=== PATIENT | female | born 1970 | race Caucasian/White ===

== ENCOUNTER 2024-05-03 20:33 | Emergency (ER) | payer BC, SELFPAY ==
--- NOTE | ~2024-05-03 | CT_ITS ---
EXAMINATION: CT brain wo con DATE: 05/03/2024 21:59 INDICATION: fall, head injury . TECHNIQUE: Computed tomography (CT) of the head was performed without intravenous contrast. The mA wa s adjusted according to patient size. Iterative reconstruction technique was employed. The dose-lengt h product was 681.00 mGy-cm. COMPARISON: None. FINDINGS: No acute intracranial hemorrhage or extra-axial fluid collection. No hydrocephalus, mass, or herniation. No acute ischemic infarct. Unremarkable dural venous sinus attenuation. No acute osseous abnormality. The aerated spaces are clear. IMPRESSION: No acute intracranial process. Reviewed, dictated and finalized at location K.
--- NOTE | ~2024-05-03 | CT_ITS ---
EXAMINATION: CT cervical spine wo con DATE: 05/03/2024 22:00 INDICATION: fall, head injury TECHNIQUE: Computed tomography (CT) of the cervical spine was performed without intravenous contrast. Automated exposure control and iterative reconstruction technique were employed. The dose-length pro duct was 392.61 mGy-cm. COMPARISON: None. FINDINGS: Vertebral Body Alignment: Intact. Craniocervical and atlantoaxial alignment: Moderate degenerative change. Alignment intact. Osseous structures/fracture: No evidence of a lytic or blastic process in the visualized spine. No e vidence of acute fracture. Cervical soft tissues: The paraspinal soft tissues planes are maintained. Biapical pleural scarring. Degenerative changes: Degenerative changes, without severe neural foraminal or central canal narrowin g. Prominent posterior disc marginal osteophyte complexes and posterior longitudinal ligament ossific ation at C5 and C6 which contribute to mild-moderate canal narrowing. IMPRESSION: No acute fracture or traumatic malalignment in the cervical spine. Reviewed, dictated and finalized at location K.
[2024-05-03 20:46] VITALS: BP 127/87; PULSE 112; RESP 16; TEMP 36.7; O2SAT 96
--- NOTE | 2024-05-03 20:53 | ED_ITS ---
HPI - Headache General Chief Complaint: Headache Stated Complaint: fell and hit head, headache & N/V since Time Seen by Provider: 05/03/24 20:53 Source: patient Mode of arrival: ambulatory Limitations: no limitations History of Present Illness HPI Narrative: This is a 53-year-old female who presents to the ED for chief complaint of head injury that occurred earlier today around 2:00 p.m.. Patient states that she accidentally slipped while trying to get out of the shower. Patient states that she hit her head on the bathroom floor. She is unsure if she passed out. Endorses nausea but no vomiting. Endorses frontal headache. Denies double vision, numbness, weakness, neck pain or spine pain. Denies any further site of injury. Related Data Allergies Allergy/AdvReac Type Severity Reaction Status Date / Time No Known Allergies Allergy Verified 05/03/24 21:35 Review of Systems Review of Systems: All systems as dictated in HPI Exam Narrative: GENERAL: Well-appearing, well-nourished, and in no acute distress. HEAD: Normocephalic, atraumatic. EYES: PERRLA and EOMI. ENT: Nares clear, no rhinorrhea or epistaxis. Mucous membranes moist. Oropharynx without tonsillar hypertrophy exudate or other lesions. NECK: Supple. No adenopathy or masses. CHEST: No respiratory distress. Clear to auscultation. No wheezes rales or rhonchi HEART: Regular rate and rhythm. No murmur heard. Normal peripheral pulses. ABDOMEN: Soft, nontender, nondistended, normal active bowel sounds. MSK: Normal range of motion. No edema. No midline spine tenderness. SKIN: Warm, dry, no rash. NEURO: Alert and oriented x4. No focal deficits. Ambulatory without assistance. PSYCH: Normal mood and affect. Course Vital Signs Vital signs: Vital Signs Temperature 98.1 F 05/03/24 20:46 Pulse Rate 112 H 05/03/24 20:46 Respiratory Rate 16 05/03/24 20:46 Blood Pressure 127/87 05/03/24 20:46 Pulse Oximetry 96 05/03/24 20:46 Oxygen Delivery Room Air 05/03/24 20:46 Temperature 98.1 F 05/03/24 20:46 Pulse Rate 83 05/03/24 22:47 Respiratory Rate 16 05/03/24 22:47 Blood Pressure 134/76 05/03/24 22:47 Pulse Oximetry 100 05/03/24 22:47 Oxygen Delivery Room Air 05/03/24 20:46 MDM - Headache MDM Narrative Medical decision making narrative: This is a 53-year-old female who presents to the ED for chief complaint of head injury after fall today. Fall was mechanical in nature. Vitals are normal. Exam is unremarkable. No neurologic deficits. CT brain and cervical spine are negative for acute findings. Presentation consistent with concussion. She was given Tylenol, Zofran, Toradol here with good relief of symptoms. Patient will be discharged in stable condition. Supportive measures discussed and return precautions given. Patient is understanding and agreeable with plan for discharge with PCP follow-up. Lab Data Labs: Lab Results 05/03/24 Range/Units 21:34 POC Urine HCG, Qual Negative (Negative) Discharge Plan Discharge Clinical Impression: Concussion Patient Disposition: Home, Self-Care Condition: Stable Instructions: Antibiotic Form Additional Instructions: Exam and imaging today are reassuring overall. This is probably consistent with a concussion which should self resolve over the next week. Tylenol and ibuprofen regularly for pain control. Zofran for nausea. If you have any new or worsening symptoms please return to the ER for further evaluation. Patient Language: Hebrew Prescriptions: New ondansetron 4 mg tablet,disintegrating 4 mg PO Q8H PRN (Reason: nausea and vomiting) Qty: 10 0RF Follow-up/Referrals: PHYSICIAN,CHEMICAL OPERATIONS SPECIALIST [Non-Staff] - Time of Disposition: 22:35
--- OUTSIDE RECORDS SUMMARY | 2024-05-03 21:08 | XMS_ITS | CONTINUITY OF CARE DOCUMENT ---
Author Name yamilex kaminski Address Unknown Organization [facility] Address [address] [place] [address] Phone [phone] Care Team Providers Care Privacy Officer Name Role Phone Jesus EMERY, Flako Unavailable SCOTTIE VIVEROS MD Unavailable INSURANCE PROVIDERS Payer name Policy type / Coverage type [place] [employer] party ID [facility] [id number]
--- OUTSIDE RECORDS SUMMARY | 2024-05-03 21:08 | XMS_ITS | Clinical Summary ---
Author Organization [facility] Address [address] [place] [address] Care Team Providers Care Command And Control Name Role Phone Zeeshan Collins ECTOR-GEODESIST Primary Care Provider [phone] Source Comments [facility],non-owned Affiliates and Associated Physician Practices is amultiple site organization consisting of ambulatory clinics and hospital sitesin [place], [place], [place]. This disclosure is being madepursuant to the Care Everywhere program and may not contain all information available regarding this patient. Last updated 17.[facility] Allergies No known active allergies Medications * Be aware that medications may not be up to date on this document. Alwaysverify current medications with the patient. Medication Sig Dispensed Refills Start Date End Date Status busPIRone (Buspar) 10 MG tablet Take 1 (one) tablet by mouth 2 times daily as needed 10/23/2023 Active diphenoxylate-atropi ne (Lomotil) 2.5-0.025 MG tablet TAKE 1 TABLET BY MOUTH EVERY 8 HOURS NEEDED FOR DIARRHEA 02/17/2023 Active FLUoxetine (PROzac) 40 MG capsule Take 1 (one) capsule by mouth once daily 10/23/2023 Active ondansetron (Zofran) 8 MG tablet Take 1 (one) tablet by mouth 2 times daily 07/01/2023 Active SUMAtriptan (Imitrex) 50 MG tablet TAKE 1 TABLET BY MOUTH AT ONSET OF SYMPTOMS. MAY REPEAT DOSE IN 2 HOURS. DO NOT EXCEED 200 MG IN 24 HOURS 09/25/2023 Active valACYclovir (Valtrex) 500 MG tablet Take 1 (one) tablet by mouth once daily 10/23/2023 Active Multiple Vitamins-Minerals (Eye Health) CAPS Active magnesium oxide (Mag-Ox) 400 MG tablet Take 1 (one) tablet by mouth once daily Active Calcium Magnesium Zinc 333-133-5 MG TABS Active Levocetirizine Dihydrochloride (XYZAL PO) Active Collagen-Vitamin C-Biotin (COLLAGEN 1500/C PO) Active Misc Natural Products (OSTEO BI-FLEX ADV TRIPLE ST PO) Active Ashwagandha CAPS capsule Take 1 capsule by mouth Active multivitamins plus minerals chew tablet Take 1 (one) tablet by mouth daily with food Active cyanocobalamin (Vitamin B-12) 100 MCG tablet Take 1 (one) tablet by mouth once daily Active Nutritional Supplements (ESTRO SUPPORT ES PO) Active acetaminophen (Tylenol) 325 MG tablet Take 1 (one) tablet by mouth every 4 hours as needed for Fever or Pain Maximum allowable Acetaminophen amount = 4 Grams (4000 mg) / 24 hours. Active silver sulfADIAZINE (Silvadene) 1 % cream Apply to affected area 2 times daily Active naproxen (Naprosyn) 500 MG tabletIndications:Ea rly sudpected inflammatory arthritis. Take 1 (one) tablet by mouth 2 times daily Reasons: Early sudpected inflammatory arthritis. 180 tablet 1 12/31/2023 Active Active Problems Problem Noted Date Diagnosed Date Periarticular subcutaneous nodules 03/02/2024 Assessment & Plan (03/02/2024 5:06 PM MAJOR ASSEMBLER): 2 discrete nodules surrounding left #2 PIP articulation of ? etiology. Doubt rheumatoid nodules (RF negative). Painful when strikes finger. Recommend surgical excision for pathology review) Inflammatory polyarthritis 12/16/2023 Overview (12/16/2023): Suspect nodular rheumatoid arthritis (mother had RA). Begin staging (see lab and xray orders). Begin naproxen 500mg twice daily. Return to discuss detention Rx. Encounters Date Type Department Care Team Description 03/09/2024 1:00 PM MAJOR ASSEMBLER Office Visit [facility] - Orthopedics [address] [place] [address], [place] [address] Sriram Sarmiento MD Periarticular subcutaneous nodules (Primary Dx); Finger mass, left 03/05/2024 Travel 03/02/2024 11:00 AM MAJOR ASSEMBLER Office Visit [facility] - Rheumatology [address] [place] [address], [address] [place] [address] Devon Jose DO Periarticular subcutaneous nodules (Primary Dx); Inflammatory polyarthritis; Encounter for monitoring NSAID therapy from Last 3 Months Social History Tobacco Use Types Packs/Day Years Used Date Smoking Tobacco: Former Cigarettes S tarted: 2003 Smokeless Tobacco: Never PHQ-2 Answer Date Recorded Patient Health Questionnaire-2 Score 1 03/02/2024 Sex and Gender Information Value Date Recorded Sex Assigned at Not on file Gender Identity Not on file Sexual Orientation Not on file Last Filed Vital Signs Vital Sign Reading Time Taken Comments Blood Pressure 110/70 03/02/2024 10:47 AM MAJOR ASSEMBLER Pulse 79 03/02/2024 10:47 AM MAJOR ASSEMBLER Temperature 36.1 C (97 F) 03/02/2024 10:47 AM MAJOR ASSEMBLER Respiratory Rate 16 03/02/2024 10:47 AM MAJOR ASSEMBLER Oxygen Saturation 98% 03/02/2024 10:47 AM MAJOR ASSEMBLER Inhaled Oxygen Concentration - - Weight 78 kg (172 lb) 03/02/2024 10:47 AM MAJOR ASSEMBLER Height 165.1 cm (5' 5 ) 12/31/2023 11:54 AM MAJOR ASSEMBLER Body Mass Index 28.62 12/31/2023 11:54 AM MAJOR ASSEMBLER Plan of Treatment Upcoming Encounters Date Type Department Care Team (Latest Contact Info) Description 05/12/2024 7:15 AM CDT Hospital Encounter [facility] [address] [place] [address] Sriram Sarmiento MD [address] [place] [phone] Surgery General 05/12/2024 7:15 AM CDT - 05/12/2024 8:18 AM CDT Surgery [facility] [address] [place] [address] Sriram Sarmiento MD [address] [place] [phone] INDEX FINGER TUMOR EXCISIONAL BIOPSY 06/01/2024 10:40 AM CDT Office Visit [facility] - Rheumatology [address], [address] [place] [phone] Devon Jose DO [address] [place] [phone] 06/01/2024 1:00 PM CDT Office Visit [facility] - Rheumatology [address] [place] [address] Ramírez Daigle MD [address] [place] [address] 06/29/2024 10:00 AM CDT Office Visit [facility] - Endocrinology [address], [address] [place] [phone] Benito Cuevas MD [address] [place] [address] Scheduled Procedures Name Priority Associated Diagnoses Date/Ti me EXCISION MASS OR TUMOR ARM/SHOULDER Diagnosis unknown 05/12/2024 7:15 AM CDT Health Maintenance Due Date Last Done Comments COLON MONITORING 1970 COLONOSCOPY - COLON CA SCREENING 1970 CT COLONOGRAPHY - COLON CA SCREENING 1970 FIT - COLON CA SCREENING 1970 FLEX SIG - COLON CA SCREENING 1970 LIPID TESTING 1970 MAMMOGRAM 1970 PAP SMEAR 1970 HIV SCREENING 1985 DTAP/TDAP/TD VACCINES (1 - Tdap) 1989 HEPATITIS B VACCINE (1 of 3 - 19+ 3-dose series) 1989 PNEUMOCOCCAL VACCINE 50+ (1 of 1 - PCV) 2020 ZOSTER VACCINE (1 of 2) 2020 COVID-19 VACCINE ( - 2023-2 5 season) 2023 INFLUENZA VACCINE (#1) 2023 3, 01/23/2022 SCREENING FOR DIABETES 12/16/2023 COLOGUARD (AGES 45-75) - COL ON CA SCREENING 03/31/2025 03/31/2022 Colorectal Cancer Screening 03/31/2025 HEPATITIS C SCREENING Completed 12/29/2023 DEPRESSION SCREENING Completed 03/02/2024 HIB VACCINE Aged Out No longer eligi ble based on patient's age to complete this topic HPV VACCINE Aged Out No longer eligi ble based on patient's age to complete this topic MENINGOCOCCAL (Group B) VACCINE SHARED DECISION-MAKING Aged Out No longer eligible based on patient's age to complete this topic MENINGOCOCCAL GROUPS A/C/Y/W VACCINE Aged Out No longer eligible b ased on patient's age to complete this topic Procedures Procedure Name Priority Date/Time Associated Diagnosis Comments HEPATITIS C AB W/RFLX TO HCV RNA QN PCR 12/29/2023 1:29 PM MAJOR ASSEMBLER from Last 3 Months or Most Recently Relevant to Health Maintenance Results * HEPATITIS C AB W/RFLX TO HCV RNA QN PCR (12/29/2023 1:29 PM MAJOR ASSEMBLER) Hepatitis C Antibody NON-REACTI VE NON-REACT [facility] Comment: HCV antibody was non-reactive. There is no laboratory evidence of HCV infection. In most cases, no further action is required. However, if recent HCV exposure is suspected, a test for HCV RNA (test code 68028) is suggested. For additional information please refer to http://education.[employer].Make My plate/faq/RLM24c4 (This link is being provided for informational/ educational purposes only.) Test Performed at: [facility] [address] [place] [address] BRIAN SIMEON MD 12/29/2023 1:29 PM MAJOR ASSEMBLER 12/29/2023 1:32 PM MAJOR ASSEMBLER Devon Jose DO LAB - CHEMISTRY [facility] [address] [place] [address] from Last 3 Months or Most Recently Relevant to Health Maintenance Care Teams Command And Control Relationship Specialty Start Date End Date Zeeshan Collins APRN-MIGNON [address] [place] [phone] PCP - General Nurse Practitioner Family 12/16/23
--- OUTSIDE RECORDS SUMMARY | 2024-05-03 21:09 | XMS_ITS | Data Portability ---
Author Organization [facility] [employer], Main Office Address [address] [place] [address] Assessment Encounter Date Assessment Date Assessment LastModified by Organization Details LastModified Time 07/01/2023 07/01/2023 The patient gave verbal consent using TeleHealth services and the consent is documented in the medical record prior to using the service. The patient has been informed of what a TeleMedicine visit is. Patient is located at home. Provider is located at office. Names and roles of persons in addition to the patient and provider participating in telemedicine services include none. The patient had a 9 minute TeleMedicine consultation via [facility] to discuss the following: [email or web address] Not available 07/01/2023 16:40:13 Plan of Treatment Reminders Order Date Submit Date Provider Last Modified By Organization Details Last Modified Time Details Appointments None recorded. Lab ESR (erythrocyt e sedimentati on rate), blood [address] (Lab), [address] [place], [address], 4 08:06:52 rf (rheumatoid factor), serum [address] (Lab), [address] [place], [address], 4 08:06:52 NORMA (antinuclea r antibodies) screen, ifa, serum 2023 024 [facility] (Lab), [address] [place], [address], 4 09:35:29 uric acid, serum or plasma [address] (Lab), [address] [place], [address], 4 08:06:52 TSH, serum or plasma [address] (Lab), [address] [place], [address], 4 08:06:52 CBC w/ auto diff [address] (Lab), [address] [place], [address], 4 08:06:52 vitamin B12 + folate, serum or blood [address] (Lab), [address] [place], [address], 4 08:00:55 hepatic function panel, serum 2023 024 [email or web address] Not available 4 07:54:40 pap, IG + HR HPV 2023 024 Not available 4 12:04:10 lipid panel, serum 2023 024 [email or web address] Not available 4 07:54:40 BMP, serum or plasma 2023 024 [email or web address] Not available 4 07:54:40 TSH, serum or plasma 2023 024 [email or web address] Not available 4 07:54:41 CBC w/ auto diff 2023 024 [email or web address] Not available 4 07:54:41 vitamin B12, serum 2023 024 [email or web address] Not available 4 07:54:41 vitamin D, 25-hydroxy, total, serum 2023 024 [email or web address] Not available 4 07:54:40 ESR (erythrocyt e sedimentati on rate), blood 2023 024 [email or web address] Not available 4 07:54:40 rf (rheumatoid factor), serum 2023 024 [email or web address] Not available 4 07:54:41 NORMA (antinuclea r antibodies) screen, serum 2023 024 [email or web address] Not available 4 07:54:41 uric acid, serum or plasma 2023 024 [email or web address] Not available 4 07:54:41 Referral None recorded. Procedures None recorded. Surgeries None recorded. Imaging MAMMO, screening, digital, bilateral - *Please call pt to schedule* 2023 024 [email or web address] 256 [facility], [address] [place] [address], [address], 4 08:57:45 XR, wrist + hand 2023 024 [email or web address] 256 [facility], [address], [place], [address], 4 08:57:45 MAMMO, screening, digital, bilateral [address] ([facility]), [address] [place], [address], 3 08:31:26 Medication Orders sumatriptan 50 mg tablet 2023 024 [facility], [address] [facility], [place], [place], [id number], 4 11:02:37 ondansetron HCl 8 mg tablet 2023 024 [facility] #05094, [address], [place], [place], [id number], 4 16:40:26 sumatriptan 50 mg tablet 2023 024 [facility] #67036, [address], [place], [place], [id number], 4 16:40:27 Nurtec ODT 75 mg disintegrat ing tablet 2023 024 [facility] #86133, [address], [place], [place], [id number], 4 15:43:31 valacyclovi r 500 mg tablet 2022 023 [facility] #10049, [address], [place], [place], [id number], 3 16:23:31 Nurtec ODT 75 mg disintegrat ing tablet 2022 023 [email or web address] [facility] #33816, [address], [place], [place], [id number], 3 16:23:23 fluoxetine 40 mg capsule 2022 023 [email or web address] [facility] #91104, [address], [place], [place], [id number], 4 16:36:22 Patient TargetsNo targets recorded. Patient Instructions Encounter Date Encounter Id Patient Instructions Last Modified By Organization Details Last Modified Time 07/01/2023 [id number] Due to the COVID-19 (Novel Coronavirus) pandemic, it is within this context (and with the understanding that this method of patient encounter is in the patient s best interest as well as the health and safety of other patients and the public) that [facility] is being provided for this patient encounter rather than a nwob-nl-hpdo visit. This patient encounter is appropriate at this time. This patient has been advised of the potential risks and limitations of this mode of treatment (including, but not limited to, the absence of in-person examination) and has agreed to be treated in a remote fashion despite these risks. Any and all of the patient s /patient s family s questions on this issue have been answered, and I have made no promises or guarantees to the patient. The patient has also been advised to contact this office for worsening conditions or problems, and seek emergency medical treatment and/or call 911 if the patient deems either necessary. HPI and/or vitals, if listed, were provided by the patient. Due to the COVID-19 (Novel Coronavirus) pandemic, it is within this context (and with the understanding that this method of patient encounter is in the patient s best interest as well as the health and safety of other patients and the public) that t [facility] is being provided for this patient encounter rather than a qryj-tk-nwmq visit. This patient encounter is appropriate at this time. This patient has been advised of the potential risks and limitations of this mode of treatment (including, but not limited to, the absence of in-person examination) and has agreed to be treated in a remote fashion despite these risks. Any and all of the patient s /patient s family s questions on this issue have been answered, and I have made no promises or guarantees to the patient. The patient has also been advised to contact this office for worsening conditions or problems, and seek emergency medical treatment and/or call 911 if the patient deems either necessary. HPI and/or vitals, if listed, were provided by the patient. [email or web address] Not available 07/01/2023 16:24:04 Reason for Referral None Reported. Results Created Date Observation Date Name Description Value Unit Range Abnormal Flag Note LastModifiedBy Organization Detail LastModifiedTime 03/19/1903/25/2023 PAP THINP REP W/HPV -HR diagnosis: Rob CADENA FOR INTRA EPITH ELIAL LAURI Vila OR DELIA SEVILLA . Not Available [facility] [address] [place], [address], 03/25/2023 11:12:28 03/19/1903/2503/25/2023 PAP THINP REP W/HPV -HR specimen adequacy: Rob Gan Satis facto ry for evalu ation . Endoc ervic al and/o r squam ous m etapl astic cells (endo cervi arjun compo nent) are prese nt. Not Available [facility] (Lab) [address] [place], [address], 03/25/2023 11:12:28 03/19/19 24 03/25/2023 PAP THINP REP W/HPV -HR clinician provided ICD10: Rob Gan [place] Not Available [facility] (Lab) [address] [place], [address], 03/25/2023 11:12:28 03/19/19 24 03/25/2023 PAP THINP REP W/HPV -HR performed by: Rob Villareal th, Cytot echana lilia herrera t (ASCP ) Not Available [facility] (Lab) [address] [place], [address], 03/25/2023 11:12:28 03/19/19 24 03/25/2023 PAP THINP REP W/HPV -HR . . Not Available [facility] (Lab) [address] [place], [address], 03/25/2023 11:12:28 03/19/19 24 03/25/2023 PAP THINP REP W/HPV -HR note: Rob olivas The Pap smear is a scree kate test desig yulissa to aid in the detec tion of sami ligna nt and malig nant condi tions of the uteri ne cervi x. It is not a diagn ostic proce dure and shoul d not be used as the sole means of detec ting cervi arjun cance r. Both false -posi tive and false -nega tive repor ts do occur . . Not Available [facility] (Lab) [address] [place], [address], 03/25/2023 11:12:28 03/19/19 24 03/25/2023 PAP THINP REP W/HPV -HR test methodology: Nbaen brendon This liqui d based ThinP rep(R ) pap test was miki duenas with the use of an image guide ame sommer Not Available [facility] (Lab) [address] [place], [address], 03/25/2023 11:12:28 03/19/19 24 03/25/2023 PAP THINP REP W/HPV -HR aptima HPV, reflex Negati ve negati ve This nucle ic acid ampli ficat ion test detec ts fourt een high- risk HPV types (16,1 8,31, 33,35 ,39,4 5,51, 52,56 ,58,5 9,66, 68) witho ut diffe renti ation . Perfo rmed at: [facility] [place] [address] [facility] , [facility] [place] [address] Lab Direc tor: Yomi monet MD, Phone : [phone] Perfo rmed at: =[facility] [place] [address] [facility] , [facility] [place] [address] Lab Direc tor: Yomi monet MD, Phone : [phone] Not Available [facility] (Lab) [address] [place], [address], 03/25/2023 11:12:28 09/19/19 23 09/18/2022 CT, lumba r spine , w/o contr ast No observ ation record ed. [place] [id number] [facility] [address] [place] [address], [address], 10/23/2022 19:57:43 09/19/19 23 09/18/2022 XR, hip, unila teral No observ ation record ed. [email or web address] [facility] [address] [facility] [address], [place], [address], 09/19/2022 08:36:44 Result Notes None recorded. Problems Name Problem SNOMED Code Status Onset Date Resolution Date Notes Provider Name and Address Organization Details Recorded Time Depressive disorder 22713444 Active 2022 MELINDA Chun [address], [address], [place], [address], [employer] 3 16:00:36 Insomnia 612239899 Active 2022 MELINDA Chun [address], [address], [place], [address], [employer] 3 16:01:06 Lump on finger 759017482 Active 2022 MELINDA Chun [address], [address], [place], [address], [employer] 3 16:13:27 COVID-19 590436713 Active 2022 MELINDA Chun [address], [address], [place], [address], [employer] 3 17:55:05 Migraine 18552035 Active 2022 MELINDA Chun [address], [address], [place], [address], [employer] 3 17:55:11 Herpes zoster 4174366 Active 2022 MELINDA Chun [address], [address], [place], [address], [employer] 3 18:15:31 Recurrent herpes simplex 15139103 Active 2022 Alejandra Melchor MD [address], [address], [place], [address], [employer] 3 16:12:27 Vitamin D deficiency 70766631 Active 2023 Alejandra Melchor MD [address], [address], [place], [address], [employer] 4 15:34:46 Multiple joint pain 32341071 Active 2023 Alejandra Melchor MD [address], [address], [place], [address], [employer] [facility] [employer] [facility] 4 15:38:08 Pain of bilateral hands 1881110364049 9109 Active 2023 Alejandra Melchor MD [address], [address], [place], [address], [employer] [facility] [employer] [facility] 4 15:39:22 Fatigue 70424874 Active 2023 Alejandra Melchor MD [address], [address], [place], [address], [employer] [facility] [employer] [facility] 4 15:42:18 Anxiety 11353903 Active 2023 Alejandra Melchor MD [address], [address], [place], [address], [employer] [facility] [employer] [facility] 4 15:47:59 Nausea 075971961 Active 2023 Zeeshan Collins [employer] [address], [address], [place], [address], [employer] [facility] [employer] 4 16:37:03 Mixed anxiety and depressive disorder 338886186 Active 2023 Zeeshan Collins [employer] [address], [address], [place], [address], [employer] [facility] [employer] [facility] 4 16:39:05 Skin lesion 11443924 Active 2023 Zeeshan Collins [employer] [address], [address], [place], [address], [employer] [facility] [employer] 4 10:55:00 Anti-nuclea r factor detected 795454820 Active 2023 Zeeshan Collins [employer] [address], [address], [place], [address], [employer] [facility] [employer] 4 16:31:31 Hyperthyroi dism 75610521 Active 2023 BERNARDO Avila [address] [facility], [facility] [address], [place], [address], [facility] [employer] 4 09:15:04 Problem Notes None recorded. Procedures Surgical History None recorded. Imaging Results Imaging Date Name Status LastModified by Organiz ation Details LastModified Time 09/18/2022 CT, lumbar spine, w/o contrast completed [email or web address] [address] [place] [address], [address], 10/23/2022 19:57:43 09/18/2022 XR, hip, unilateral completed [email or web address] [address], [place], [address], 09/19/2022 08:36:44 Procedure Notes None recorded. Medical Equipment None Reported. Allergies No known drug allergies Medications Name Sig Start Date Stop Date Status Note LastModified by Organization Details LastModified Time fluoxetine 40 mg capsule TAKE 1 CAPSULE BY MOUTH EVERY DAY active Not Available Not Available No t Available cyclobenzap rine 10 mg tablet TAKE 1 TABLET BY MOUTH EVERY 8 HOURS NEEDED active Not Available Not Available No t Available amoxicillin 500 mg capsule TAKE 1 CAPSULE BY MOUTH EVERY 8 HOURS active Not Available Not Available No t Available atorvastati n 20 mg tablet active Not Available Not Available Not Available clindamycin HCl 300 mg capsule TK ONE C PO Q 6 H active Not Available Not Available No t Available azithromyci n 250 mg tablet TAKE 2 TABLETS BY MOUTH FOR 1 DAY THEN TAKE 1 TABLET BY MOUTH DAILY FOR 4 DAYS DIRECTED active Not Available Not Available No t Available ibuprofen 800 mg tablet TAKE 1 TABLET BY MOUTH EVERY 6 TO 8 HOURS NEEDED FOR PAIN active Not Available Not Available No t Available ofloxacin 0.3 % eye drops USE 1-2 GTS AEY QID X5DAYS active Not Available Not Available No t Available hydrocodone 5 mg-acetamin ophen 325 mg tablet TAKE 1 TABLET BY MOUTH EVERY 8 HOURS FOR 3 DAYS NEEDED FOR PAIN 11/05 completed Not Available Not Available Not Available hydrocortis one 1 % topical ointment active Not Available Not Available Not Available ondansetron HCl 8 mg tablet TAKE 1 TABLET BY MOUTH TWICE DAILY active Not Available Not Available No t Available ondansetron HCl 4 mg tablet active Not Available Not Available Not Available prednisone 20 mg tablet TAKE 2 TABLETS BY MOUTH DAILY FOR 5 DAYS active Not Available Not Available No t Available sertraline 100 mg tablet active Not Available Not Available Not Available sumatriptan 50 mg tablet TAKE 1 TABLET BY MOUTH AT ONSET OF SYMPTOMS. MAY REPEAT DOSE IN 2 HOURS. DO NOT EXCEED 200 MG IN 24 HOURS active Not Available Not Available No t Available diphenoxyla te-atropine 2.5 mg-0.025 mg tablet TAKE 1 TABLET BY MOUTH EVERY 8 HOURS NEEDED FOR DIARRHEA active Not Available Not Available No t Available metronidazo le 500 mg tablet active Not Available Not Available Not Available ciprofloxac in 250 mg tablet active Not Available Not Available Not Available acyclovir 400 mg tablet TAKE 1 TABLET BY MOUTH EVERY 8 HOURS FOR 10 DAYS 03/19 completed Not Available Not Available Not Available valacyclovi r 500 mg tablet TAKE 1 TABLET BY MOUTH EVERY DAY active Not Available Not Available No t Available ciprofloxac in 500 mg tablet active Not Available Not Available Not Available acyclovir 800 mg tablet active Not Available Not Available Not Available oxycodone-a cetaminophe n 5 mg-325 mg tablet active Not Available Not Available No t Available amoxicillin 875 mg tablet active Not Available Not Available Not Available amitriptyli ne 25 mg tablet active Not Available Not Available Not Available methocarbam ol 750 mg tablet TAKE 1 TABLET BY MOUTH THREE TIMES DAILY active Not Available Not Available No t Available oxycodone-a cetaminophe n 10 mg-325 mg tablet TK 1 T PO Q 6 H PRN active Not Available Not Available No t Available benzonatate 100 mg capsule TAKE 1 CAPSULE BY MOUTH EVERY 8 HOURS NEEDED 03/19 completed Not Available Not Available Not Available buspirone 10 mg tablet TAKE 1 TABLET BY MOUTH TWICE DAILY active Not Available Not Available No t Available gabapentin 300 mg capsule TAKE 1 CAPSULE BY MOUTH THREE TIMES DAILY NEEDED active Not Available Not Available No t Available codeine 10 mg-guaifene sin 100 mg/5 mL oral liquid TAKE 10 ML BY MOUTH EVERY 6 HOURS NEEDED FOR COUGH active Not Available Not Available No t Available albuterol sulfate HFA 90 mcg/actuati on aerosol inhaler INHALE 2 PUFFS BY MOUTH EVERY 4 HOURS NEEDED active Not Available Not Available No t Available Vitamin D2 1,250 mcg (50,000 unit) capsule active Not Available Not Available Not Available topiramate 100 mg tablet active Not Available Not Available Not Available fluoxetine 20 mg capsule TAKE 2 CAPSULE BY MOUTH EVERY DAY IN THE MORNING AND 1 CAPSULE IN THE EVENING active Not Available Not Available No t Available fluticasone propionate 50 mcg/actuati on nasal spray,suspe nsion active Not Available Not Available Not Available naproxen 500 mg tablet TAKE 1 TABLET BY MOUTH TWICE DAILY active Not Available Not Available No t Available diazepam 5 mg tablet TK 1 T PO QID PRN active Not Available Not Available No t Available amoxicillin 875 mg-potassiu m clavulanate 125 mg tablet TAKE 1 TABLET BY MOUTH TWICE DAILY WITH FOOD active Not Available Not Available No t Available cyclobenzap rine 5 mg tablet TAKE 1 TABLET BY MOUTH THREE TIMES DAILY NEEDED FOR BACK SPASMS active Not Available Not Available No t Available topiramate 50 mg tablet active Not Available Not Available Not Available sumatriptan 4 mg/0.5 mL subcutaneou s pen injector active Not Available Not Available Not Available [facility] ODT 75 mg disintegrat ing tablet Take by oral route for 16 days. active Not Available Not Available No t Available Vitals Date Recorded Body height Body mass index (BMI) Body weight Body temperature Heart rate Oxygen saturation Oxygen saturation in Arterial blood by Pulse oximetry Systolic blood pressure Diastolic blood pressure Provider Name and Address Organization Details Last Updated DateTime 3 167.64 cm 28.1 kg/m2 31058.0 7 g 98.1 [degF] 93 /min 100 % 100 % 134 mm[Hg] 90 mm[Hg] Carey Owens CMA [facility] [employer] 3 16:01:23 Date Recorded Body height Body mass index (BMI) Body weight Body temperature Heart rate Oxygen saturation Oxygen saturation in Arterial blood by Pulse oximetry Systolic blood pressure Diastolic blood pressure Provider Name and Address Organization Details Last Updated DateTime 3 167.64 cm 27.1 kg/m2 32393.5 2 g 98 [degF] 90 /min 96 % 96 % 130 mm[Hg] 86 mm[Hg] Joyce Rudolph RN [facility] [employer] [facility] 3 15:57:28 Date Recorded Body height Body mass index (BMI) Body weight Body temperature Oxygen saturation Oxygen saturation in Arterial blood by Pulse oximetry Heart rate Systolic blood pressure Diastolic blood pressure Provider Name and Address Organization Details Last Updated DateTime 4 167.64 cm 27.4 kg/m2 94729.7 g 97.8 [degF] 96 % 96 % 78 /min 130 mm[Hg] 82 mm[Hg] Joyce Rudolph RN [facility] [employer] [facility] 4 15:24:02 Date Recorded Body height Body mass index (BMI) Body weight Heart rate Respiratory rate Body temperature Provider Name and Address Organization Details Last Updated DateTime 4 167.64 cm 24.5 kg/m2 52450.0 4 g 78 /min 18 /min 98.9 [degF] Halima Bragg RN [facility] [employer] [facility] 4 16:22:34 Date Recorded Body height Body mass index (BMI) Body weight Body temperature Heart rate Oxygen saturation Oxygen saturation in Arterial blood by Pulse oximetry Systolic blood pressure Diastolic blood pressure Provider Name and Address Organization Details Last Updated DateTime 4 167.64 cm 27.9 kg/m2 78923.4 8 g 97.8 [degF] 78 /min 97 % 97 % 130 mm[Hg] 88 mm[Hg] Halima Bragg RN [facility] [employer] [facility] 4 10:46:03 Social History Question Answer Notes LastModified by Organizat ion Details LastModified Time Tobacco Smoking Status Never Smoker Alejandra Melchor MD [address] [place] [address], [address], [facility] [employer] [facility] 03/19/2023 15:28:13 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 03/19/2023 Information not available 03/19/2023 Sex: Unknown Functional Status None recorded. Mental Status None recorded. Family History Relationship Description Onset Age of this Age Resolved Age Notes LastModified by Organization Details LastModified Time Mother Migraine Not availabl e 03/19/2023 15:26:24 Mother Rheumatoid arthritis [email or web address] Not available 2023 15:26:33 Medical History No medical history recorded. Gynecological History Statement/Question Response Menses Monthly N Breast Problems no Discharge no Sexually Active? N Obstetrics History GPAL:G 0 P 0 0 0 0 Immunizations Vaccine Type Date Status Note Provider Nam e and Address Organization Details Recorded Time Influenza, split virus, quadrivalent, PF 11/05/2022 completed Remedios Valenzuela LPN null, [place] [facility] [employer] [facility] 11/05/2022 16:27:33 Tdap 01/23/2022 completed Not Available [facility] 04/10/2022 06:49:30 Influenza, split virus, quadrivalent, PF 01/23/2022 completed Not Available [facility] 06:49:30 Past Encounters Encounter ID Performer Location Encounter Start Date Encounter Closed Date Diagnosis/Indication Diagnosis SNOMED-CT Code Diagnosis ICD10 Code Diagnosis Note [id number] [facility] [address] [place] [address] [address] [place] [address] 01/23/2022 00:00:00 01/23/2022 13:50:39 [id number] [facility] [address] [place] [address] [address] [place] [address] 02/27/2022 00:00:00 02/27/2022 15:59:09 [id number] MELINDA hCun [facility] [address] [place] [address] [address] [place] [address] 05/07/2022 15:32:18 05/07/2022 16:16:12 Depressive disorder 79603519 F32.A Chronic, likely secondary to grief and work stress. Highly encouraged pt to consider counseling . Denies any SI/HI at this time. Referral generated previously Increase fluoxetine to 40mg daily. Continue buspirone 10mg TID Insomnia 316920094 G47.0 0 Not improved with melatoninS leep hygiene (set bedtime, routine for bed, dark room, no electronic s). Discussed that it will likely take several weeks to fully establish routine and note change in sleep patterns. Advised good sleep habits and patterns to include:-- Setting a goal for at least 7 to 8 hours of sleep time per day.--Usin g the bed mainly for sleep and to go to bed only when tired. If unable to fall asleep after 30 minutes, patient should get out of bed but should not engage in any activity that requires sustained mental alertness. --Maintain ing a regular bedtime and wake-up time even on weekends or days off of work.--Giovanni iding excessive naps during the daytime. If a nap is necessary, limit it to no more than 30minutes. --Minimizi ng environmen veronique noise, bright lights, and extremes in bedroom temperatur e.--Avoidi ng alcohol, caffeinate d beverages, and nicotine products for at least 6 hours prior to bedtime.-- Avoiding strenuous exercise and large meals for at least 4 hours prior to bedtime. Screening mammography 24 [id number] Z12.31 Lump on finger [id number] R22.32 New problemLef t index fingerNot causing pain or dysfunctio n at this time. Will continue to monitor and consider imaging if it changes over time. [id number] Alejandra Melchor MD [facility] Primary Care [facility] [address] [place] [address] 11/05/2022 15:53:05 11/05/2022 16:25:46 Recurrent herpes simplex 10689016 B00.9 recurrent herpes outbreak on buttocks, almost monthlywil l trial suppressiv e therapy valacyclov ir 500 mg dailyf/u in 3 months or sooner if needed Migraine 52822543 G43.90 9 see neurology to discuss other preventati ve medication like emgality/a imovighas failed topiramate , atenolol, sumatripta n, amitriptyl inesamples of nurtec 75 mg up to once daily Administra tion of influenza vaccine [id number] Z23 [id number] Alejandra Melchor MD [facility] Primary Care [facility] [address] [place] [address] 03/19/2023 15:14:08 03/19/2023 16:27:56 Adult health examination [id number] Z00.00 Z13.220 Z13.1 Tdap 2021Flu yearlyReco mmend shingles vaccinePne umovax 23 age 65Prevnar 20 any timeMammog elle order givenDEXA age 60Pap today Screening mammography 24 226007 Z12.31 Migraine 50627094 G43.90 9 see neurology to discuss other preventati ve medication like emgality/a imovighas failed topiramate , atenolol, sumatripta n, amitriptyl inesamples of nurtec 75 mg up to once daily update 03/19/23refi ll given Vitamin D deficiency 347 59444 E55.9 Long-term drug therapy 878212334 Z79.899 Multiple joint pain 3567 8005 M25.50 Pain of bi lateral hands [id number] 8322225 M79.641 M79.642 Fatigue 31241871 R53.83 Anxiety 23505693 F41.9 increase buspirone to tidif no improvemen t increase fluoxetine [id number] BERNARDO Avila [facility] Primary Care [address] [place] [address] 07/01/2023 14:53:17 07/01/2023 17:17:26 Migraine 63252291 G43.909 -controlle d,-she has been unable to get the nurtec approved-s he is okay with going back to the imitrex if nurtec is not able to be approved-g ood results with 50mg imitrex in the past-refil l NAUN 50mg Nausea 677637005 R11.0 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 currently takes prozac 40mg dailyshe would like an increase d/t exacerbati on in symptoms, in family-she will now take fluoxetine 20mg (2 tab) in the morning and 1 tab in the evening [id number] BERNARDO Avila [facility] Primary Care [address] [place] [address] 09/25/2023 10:38:37 09/25/2023 11:08:59 Migraine 53958623 G43.909 has not had any migraine since last visitstill has some samples of nurtec that she uses as needed Skin lesion 92290935 L98 .9 noted to first finger left handwill await results of xray for possible referral to derm Fatigue 89649394 R53.83 Multiple joint pain 3567 8005 M25.50 Health Concerns Section Related Observation LastModified by Organization Detai ls LastModified Time None Recorded Concern Status LastModified by Organization Details LastModified Time None Recorded Advance Directives Directive None Recorded Payers Encounter Date Sequence Insurance Name Policy Number Policy White Covered Member ID White Member ID Guarantor Name 05/07/2022 1 [place] [id number] Migdalia Uzunoff [id number] 15M Celestina L Uzunoff 11/05/2022 1 [place] [id number] Migdalia Uzunoff [id number] Celestina L Uzunoff 03/19/2023 1 [place] [id number] Migdalia Uzunoff [id number] 15M Celestina L Uzunoff 07/01/2023 1 [place] [id number] Migdalia Uzunoff [id number] 15M Celestina L Uzunoff 09/25/2023 1 [place] [id number] Migdalia Uzunoff [id number] 15M Celestina L Uzunoff Notes Date Note Type Note Provider Name and Address Organization Details Recorded Time 05/07/2022 text/html 1. Pt in office for f/u appt. Pt states she feels like the fluoxetine and buspirone were helping, but sx have worsened the past few weeks with work related stressors.2. Pt states she is struggling with insomnia. States she isn't able to shut her mind off. Reports she often works a closing shift and doesn't get home until midnight, but may have to be back at work at 7am. Candy Jolly, [employer] [address] [facility] [address], [place], [address], [facility] [employer] 05/07/2022 18:29:50 11/05/2022 text/html was seen in [facility] f or migraine and got injectable meds but migraine not 100% gone, sumatriptan, otc excedrin, tylenol and other otcs which did not help. She does have migraines 4x per week, usually sumatriptan helps but didn't this time. +sensitivity to light and sound and has nausea and vomiting. She has tried atenolol, amitriptyline, topiramate, sumatriptan. Sees neurology. she has h/o recurrent shingles for the past 23 years. She would like to get to get the shingles vaccine but has to be shingles free for 6 months before she can get it. She gets an outbreak monthly, stress is high. She gets outbreak on her right buttocks all the time. Alejandra Melchor MD [address] [employer], [place], [address], [employer] 11/05/2022 16:27:28 03/19/2023 text/html Liked nurtec pain in wrist/hands/backve ry stiffnodule left pointer at PIPtaking ibuprofen/tylenol fatigued more anxious-ok to take additional dose of buspironef/u in 6 weeks Alejandra Melchor MD [address], [place], [address], [employer] 04/10/2023 18:03:20 07/01/2023 text/html pt is a telemed visit for BERNARDO Avila [address], [place] [address], [place], [address], [employer] 07/01/2023 17:01:24 09/25/2023 text/html pt is here for f/u BERNARDO Springer [address], [place], [address], [employer] 09/26/2023 17:43:24 OBGyn Episode No OBEpisode recorded.
[2024-05-03 21:35] LABS: BEDSIDEPREGUCG Negative (Negative)
[2024-05-03] MEDS: ACETAMINOPHEN 500 MG TABLET 1000 MG PO (22:09)
[2024-05-03] MEDS: ONDANSETRON HCL ODT 4 MG TABLET PO (22:10)
[2024-05-03] MEDS: KETOROLAC 30 MG/ML VIAL (*BKC) IM (22:14)
[2024-05-03 22:47] VITALS: BP 134/76; PULSE 83; RESP 16; O2SAT 100
== END 2024-05-03 22:48 | disposition home or self-care (01) ==
PROVIDERS: Emergency Provider Physician Assistant; PCP Nurse Practitioner Family
DX: S06.0X0A Concussion without loss of consciousness, initial encounter (principal); W18.2XXA Fall in (into) shower or empty bathtub, initial encounter
CPT/HCPCS: 70450; 72125; 81025; 96372; 99284; A9270; J1885